=== PATIENT | female | born 1985 | race Caucasian/White ===

== ENCOUNTER 2020-07-12 08:57 | Emergency (ER) | payer SELFPAY ==
[2020-07-12 09:05] VITALS: BP 170/91; PULSE 98; RESP 18; TEMP 36.3; O2SAT 98; BMI 60.0
[2020-07-12 09:29] LABS: Basophils % 0.3 %; Eosinophils # 0.2 10^3/uL (0.0-0.8); Hemoglobin 11.5 g/dL (11.5-15.3); Lymphocytes # 2.2 10^3/uL (0.8-4.8); Lymphocytes % 23.7 %; Mean Corpuscular HGB Conc 31.1 g/dL (30.0-36.0); Mean Corpuscular Hemoglobin 27.1 pg (28.0-34.0); Mean Corpuscular Volume 87.1 fL (81-99); Mean Platelet Volume 10.3 fL (7.4-10.4); Monocytes # 0.6 10^3/uL (0.2-0.9); Monocytes % 6.3 %; Neutrophils # 6.24 10^3/uL (1.8-7.7); Neutrophils % 67.3 %; Nucleated Red Blood Cells % 0 %; Platelet Count 260 10^3/cmm (130-400); Red Blood Count 4.25 10^6/uL (4.1-5.3); Red Cell Distribution Width 14.7 % (12.1-15.1); White Blood Count 9.3 10^3/uL (4.0-10.0)
--- NOTE | 2020-07-12 09:37 | ED_ITS ---
HPI - General Adult General: Chief complaint: Vaginal Bleeding Stated complaint: PASSING BIG BLOOD CLOTS Time Seen by Provider: 07/12/20 08:58 History of Present Illness: HPI narrative: 34-year-old female who presents emergency room with complaint of vaginal bleeding. She is on IM medroxyprogesterone every 3 months she has been on that for 18 months states her next shot is due in about 3 to 4 weeks. For the last 2 weeks she has been having heavy.'s been a little bit lightheaded. Not had any syncopal episodes. She has had some mild cramping but no vaginal discharge burning or itching. She denies any dysuria urgency or frequency. She does have a history of polycystic ovarian syndrome. Onset (ago): week(s) (2) Location: pelvis Radiation: non-radiation Severity: moderate Quality: other (Mild cramping) Pain Consistency: intermittent Relieving factors: none Exacerbating factors: none Associated symptoms: Reports malaise; Deny chest pain, confusion, cough, diaphoresis, decreased appetite, dyspnea, fevers/chills, headache(s), nausea, rash, palpitations, seizures, short of breath, syncope, vomiting or weakness Treatments prior to arrival: none Review of Systems Const: Reports: malaise; Denies: diaphoresis ENMT: Denies: throat pain, ear or mastoid pain, nasal discharge or nasal congestion Card: Denies: chest pain, palpitations or syncope Resp: Denies: dyspnea GI: Denies: nausea or vomiting : Denies: flank pain, difficulty voiding, dysuria, urinary frequency or urinary urgency Skin/Breast: Denies: rash Neuro: Denies: headache(s) or confusion [facility] ED PFSH: Medical History (Updated 07/12/20 @ 10:40 by Kamari Up DO) PCOS (polycystic ovarian syndrome) Surgical History (Updated 07/12/20 @ 09:40 by Kamari Up DO) No history of previous surgery Social History (Updated 07/12/20 @ 09:40 by Kamari Up DO) Smoking and tobacco status: never smoked Alcohol intake: never Physical Exam Const: COMMON NORMALS: no acute distress GENERAL APPEARANCE: cooperative and comfortable ORIENTATION/CONSCIOUSNESS: Yes awake, Yes oriented to person, Yes oriented to place and Yes oriented to time HENMT: COMMON NORMALS: normocephalic, atraumatic and hearing grossly normal bilaterally HEAD & SCALP: normocephalic and atraumatic Neck/C-Spine: COMMON NORMALS: no JVD Resp: COMMON NORMALS: normal respiratory effort, No retractions, No use of accessory muscles and clear to auscultation bilaterally AUSCULTATION: clear to auscultation bilaterally Cardio: COMMON NORMALS: no JVD, regular rate, regular rhythm and No murmurs present (Cardio) RATE: regular rate RHYTHM: regular rhythm GI: COMMON NORMALS: Soft to palpation and No hepatosplenomegaly present AUSCULTATION: Yes normoactive bowel sounds PALPATION: Yes Soft to palpation, No Tenderness to palpation present (GI), No Guarding due to palpation present (GI) and Yes No hepatosplenomegaly present Extremity: COMMON NORMALS: normal to inspection, capillary refill normal, no clubbing, cyanosis or edema, no calf tenderness and no pedal edema Neuro: SENSORIUM/ORIENTATION: Yes oriented to person, Yes oriented to place and Yes oriented to time Skin: COMMON NORMALS: no rashes or lesions noted GENERAL SKIN EXAM: no rashes or lesions noted Course Vital Signs: Vital signs: Vital Signs Temperature 97.3 F L 07/12/20 09:05 Pulse Rate 65 07/12/20 10:42 Respiratory Rate 18 07/12/20 09:05 Blood Pressure 118/62 07/12/20 10:42 Pulse Oximetry 100 07/12/20 10:42 MDM - General Adult MDM Narrative: Medical decision making narrative: Medroxyprogesterone withdrawal bleed warned patient that when she finishes the medicine she will have a significant withdrawal bleed however follow-up with Dr. Phillips in the office return if she has further problems Lab Data: Labs: Lab Results 07/12/20 07/12/20 07/12/20 Range/Units 09:22 09:22 09:22 WBC 9.3 (4.0-10.0) 10^3/ uL RBC 4.25 (4.1-5.3) 10^6/u L Hgb 11.5 (11.5-15.3) g/dL Hct 37.0 (37.0-47.0) % MCV 87.1 (81-99) fL MCH 27.1 L (28.0-34.0) pg MCHC 31.1 (30.0-36.0) g/dL RDW 14.7 (12.1-15.1) % Plt Count 260 (130-400) 10^3/c mm MPV 10.3 (7.4-10.4) fL Neut % (Auto) 67.3 % Lymph % (Auto) 23.7 % [place] % (Auto) 6.3 % Eos % (Auto) 2.0 % Baso % (Auto) 0.3 % Neut # (Auto) 6.24 (1.8-7.7) 10^3/u L Lymph # (Auto) 2.2 (0.8-4.8) 10^3/u L [place] # (Auto) 0.6 (0.2-0.9) 10^3/u L Eos # (Auto) 0.2 (0.0-0.8) 10^3/u L Baso # (Auto) 0.0 (0.0-0.1) 10^3/u L Nucleated RBC % (a uto) 0 % Nucleated RBCs # 0.0 /100WBC PT 13.10 (12.1-14.9) SECO NDS INR 0.97 (0.8-1.2) APTT 25.2 (23.9-36.7) SECO NDS Sodium 140 (136-145) mmol/L Potassium 3.9 (3.5-5.1) mmol/L Chloride 107 (98-107) mmol/L Carbon Dioxide 24 (22-29) mmol/L Anion Gap 12.9 (5-19) BUN 13 (6-20) mg/dL Creatinine 0.7 (0.5-0.9) mg/dL GFR Calculation 96.4 (90-130) mL/min Glucose 104 (65-115) mg/dL Calculated Osmolal ity 286 (285-295) mOsm/k g Calcium 9.2 (8.5-10.5) mg/dL Total Bilirubin 0.5 (0.15-1.2) mg/dL AST 39 H (0-32) U/L ALT 35 H (0-33) U/L Alkaline Phosphata se 115 H (35-105) IU/L Total Protein 6.9 (6.6-8.7) g/dL Albumin 3.9 (3.5-5.2) g/dL Globulin 3.0 (1.3-4.6) g/dL HCG, Qual (Negative) Urine Color (Yellow) Urine Appearance (CLEAR) Urine pH (5-7) Ur Specific Gravit y (1.005-1.030) Urine Protein (Negative) Urine Glucose (UA) (Normal) Urine Ketones (Negative) Urine Blood (Negative) Urine Nitrate (Negative) Urine Bilirubin (NEGATIVE) Urine Urobilinogen (Negative) mg/dL Ur Leukocyte Ashley ase (Negative) Urine RBC (0-2) /hpf Urine WBC (0-5) /hpf Ur Squamous Epith Cells (0-5) Amorphous Sediment Urine Bacteria (NONE) 07/12/20 07/12/20 Range/Units 09:22 10:07 WBC (4.0-10.0) 10^3/ uL RBC (4.1-5.3) 10^6/u L Hgb (11.5-15.3) g/dL Hct (37.0-47.0) % MCV (81-99) fL MCH (28.0-34.0) pg MCHC (30.0-36.0) g/dL RDW (12.1-15.1) % Plt Count (130-400) 10^3/c mm MPV (7.4-10.4) fL Neut % (Auto) % Lymph % (Auto) % [place] % (Auto) % Eos % (Auto) % Baso % (Auto) % Neut # (Auto) (1.8-7.7) 10^3/u L Lymph # (Auto) (0.8-4.8) 10^3/u L [place] # (Auto) (0.2-0.9) 10^3/u L Eos # (Auto) (0.0-0.8) 10^3/u L Baso # (Auto) (0.0-0.1) 10^3/u L Nucleated RBC % (a uto) % Nucleated RBCs # /100WBC PT (12.1-14.9) SECO NDS INR (0.8-1.2) APTT (23.9-36.7) SECO NDS Sodium (136-145) mmol/L Potassium (3.5-5.1) mmol/L Chloride (98-107) mmol/L Carbon Dioxide (22-29) mmol/L Anion Gap (5-19) BUN (6-20) mg/dL Creatinine (0.5-0.9) mg/dL GFR Calculation (90-130) mL/min Glucose (65-115) mg/dL Calculated Osmolal ity (285-295) mOsm/k g Calcium (8.5-10.5) mg/dL Total Bilirubin (0.15-1.2) mg/dL AST (0-32) U/L ALT (0-33) U/L Alkaline Phosphata se (35-105) IU/L Total Protein (6.6-8.7) g/dL Albumin (3.5-5.2) g/dL Globulin (1.3-4.6) g/dL HCG, Qual Negative (Negative) Urine Color Red (Yellow) Urine Appearance Cloudy (CLEAR) Urine pH 5 (5-7) Ur Specific Gravit y 1.020 (1.005-1.030) Urine Protein 1+ H (Negative) Urine Glucose (UA) Norm (Normal) Urine Ketones Negative (Negative) Urine Blood 3+ H (Negative) Urine Nitrate Negative (Negative) Urine Bilirubin Neg (NEGATIVE) Urine Urobilinogen Neg (Negative) mg/dL Ur Leukocyte Ashley ase Trace H (Negative) Urine RBC Too numerous to c nt H (0-2) /hpf Urine WBC None (0-5) /hpf Ur Squamous Epith Cells 0-4 H (0-5) Amorphous Sediment Not Reportable Urine Bacteria 1+ H (NONE) Discharge Plan Discharge Patient Disposition: Home Clinical Impression: Menometrorrhagia, PCOS (polycystic ovarian syndrome) Condition: Stable Prescriptions: New medroxyprogesterone 10 mg tablet 10 mg PO DAILY 10 Days RF: 0 No Action medroxyprogesterone 150 mg/mL syringe 150 mg IM Q90D RF: 0 Discharge Orders: Discharge Order (Routine); Ordered 07/12/20 Ordered By: Kamari Up Discharge Diet: Usual diet Discharge Activity: Resume usual activity Activity Restrictions/Additional Instructions: Follow-up with Dr. Phillips within 1 week Discharge Date/Time: 07/12/20 10:42 Coding Level of Care Code ED Paper Conservator for Chg Fwd Exam Comprehensive
[2020-07-12 09:46] LABS: INR 0.97 (0.8-1.2)
[2020-07-12 09:47] LABS: Partial Thromboplastin Time 25.2 SECONDS (23.9-36.7)
[2020-07-12 09:51] LABS: HCG, Serum Qual Negative (Negative)
[2020-07-12 10:03] LABS: Alanine Aminotransferase 35 U/L (0-33); Albumin Level 3.9 g/dL (3.5-5.2); Alkaline Phosphatase 115 IU/L (35-105); Anion Gap 12.9 (5-19); Aspartate Amino Transferase 39 U/L (0-32); Blood Urea Nitrogen 13 mg/dL (6-20); Calcium 9.2 mg/dL (8.5-10.5); Carbon Dioxide 24 mmol/L (22-29); Chloride 107 mmol/L (98-107); Glomerular Filtration Rate 96.4 mL/min (90-130); Glucose 104 mg/dL (65-115); Osmolality Calculated 286 mOsm/kg (285-295); Potassium 3.9 mmol/L (3.5-5.1); Sodium 140 mmol/L (136-145); Total Bilirubin 0.5 mg/dL (0.15-1.2); Total Protein 6.9 g/dL (6.6-8.7)
[2020-07-12 10:15] LABS: Add Urine Microscopic? YES; Bilirubin Urine Neg (NEGATIVE); Blood Urine 3+ (Negative); Glucose Urine UA Norm (Normal); Ketones Urine Negative (Negative); Leukocyte Esterase Urine Trace (Negative); Nitrate Urine Negative (Negative); Protein Urine 1+ (Negative); Urine Appearance Cloudy (CLEAR); Urine Color Red (Yellow); Urobilinogen Urine Neg (Negative); pH Urine 5 (5-7)
[2020-07-12 10:25] LABS: Add Urine Culture? Yes; Bacteria Urine 1+; RBC Urine TOO NUMEROUS TO CNT /hpf (0-2); Squamous Epithelial Cell Urine 0-4 (0-5)
[2020-07-12 10:42] VITALS: BP 118/62; PULSE 65; O2SAT 100
== END 2020-07-12 10:42 | disposition home or self-care (01) ==
PROVIDERS: Emergency Provider Family Medicine
DX: N92.1 Excessive and frequent menstruation with irregular cycle (principal); E28.2 Polycystic ovarian syndrome
CPT/HCPCS: 12345; 36415; 80053; 81001; 84703; 85025; 85610; 85730; 87086; 99282

== ENCOUNTER 2021-08-28 06:18 | Emergency (ER) | payer MEDICAID, SELFPAY ==
[2021-08-28 06:27] VITALS: BP 181/119; PULSE 81; RESP 18; TEMP 36.7; O2SAT 100; BMI 60.0
--- NOTE | 2021-08-28 06:29 | ECG_ITS ---
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 Measurements Intervals [place] Rate: 58 P: 43 MD: 134 QRS: 18 QRSD: 80 T: 29 QT: 391 QTc: 385 Interpretive Statements SINUS BRADYCARDIA LOW QRS VOLTAGE IN PRECORDIAL LEADS [QRS DEFLECTION < 1.0 mV IN CHEST LEADS] Compared to ECG 05/10/2018 17:58:39 Low QRS voltage now present Sinus rhythm no longer present Myocardial infarct finding no longer present Electronically Signed On 08-28-2021 22:17:34 CDT by Prabha He M.D. [email or web address]
--- NOTE | 2021-08-28 06:30 | W.ED.GENADLT ---
HPI - General Adult General: Chief complaint: Dizziness Stated complaint: Dizziness Time Seen by Provider: 08/28/21 06:27 History of Present Illness: HPI narrative: 35-year-old female presents to the emergency room with complaints of dizziness. Symptoms began this morning's were worse when she stands up. Its been persisting she has not really noticed that change in head position exacerbates it or relieves it. Lying down does seem to relieve it she has had a little bit of a sinus congestion headache recently that seems to be improving some. She denies any fever sweats chills no teeth pain no drainage from the ears. No cough or shortness of breath Onset (ago): minute(s) Relieving factors: rest (Laying supine) Exacerbating factors: other (Standing) Associated symptoms: Deny chest pain, confusion, cough, diaphoresis, decreased appetite, dyspnea, fevers/chills, headache(s), malaise, nausea, rash, palpitations, seizures, short of breath, syncope, vomiting or weakness Treatments prior to arrival: none Review of Systems Const: Denies: malaise or diaphoresis ENMT: Denies: throat pain, ear or mastoid pain, nasal discharge or nasal congestion Card: Denies: chest pain, palpitations or syncope Resp: Denies: dyspnea GI: Denies: nausea or vomiting : Denies: flank pain, difficulty voiding, dysuria, urinary frequency or urinary urgency Skin/Breast: Denies: rash Neuro: Denies: headache(s) or confusion PFS ED PFSH: Medical History PCOS (polycystic ovarian syndrome) Surgical History No history of previous surgery Social History Smoking and tobacco status: never smoked Alcohol intake: never Physical Exam Const: COMMON NORMALS: no acute distress GENERAL APPEARANCE: cooperative and comfortable ORIENTATION/CONSCIOUSNESS: Yes awake, Yes oriented to person, Yes oriented to place and Yes oriented to time HENMT: COMMON NORMALS: normocephalic, atraumatic and hearing grossly normal bilaterally HEAD & SCALP: normocephalic and atraumatic Neck/C-Spine: COMMON NORMALS: no JVD Resp: COMMON NORMALS: normal respiratory effort, No retractions, No use of accessory muscles and clear to auscultation bilaterally AUSCULTATION: clear to auscultation bilaterally Cardio: COMMON NORMALS: no JVD, regular rate, regular rhythm and No murmurs present (Cardio) RATE: regular rate RHYTHM: regular rhythm GI: COMMON NORMALS: Soft to palpation and No hepatosplenomegaly present AUSCULTATION: Yes normoactive bowel sounds PALPATION: Yes Soft to palpation, No Tenderness to palpation present (GI), No Guarding due to palpation present (GI) and Yes No hepatosplenomegaly present Extremity: COMMON NORMALS: normal to inspection, capillary refill normal, no clubbing, cyanosis or edema, no calf tenderness and no pedal edema Neuro: SENSORIUM/ORIENTATION: Yes oriented to person, Yes oriented to place and Yes oriented to time Skin: COMMON NORMALS: no rashes or lesions noted GENERAL SKIN EXAM: no rashes or lesions noted Course Vital Signs: Vital signs: Vital Signs Temperature 98.1 F 08/28/21 06:27 Pulse Rate 81 08/28/21 06:27 Respiratory Rate 18 08/28/21 06:27 Blood Pressure 181/119 08/28/21 06:27 Pulse Oximetry 100 08/28/21 06:27 MDM - General Adult MDM Narrative: Medical decision making narrative: Improved with fluids and meclizine. Labs reviewed on the chart. We will go and discharge patient on meclizine as needed follow-up as needed Lab Data: Labs: Lab Results 08/28/21 08/28/21 07:15 07:15 WBC 9.2 10^3/uL 10^3/ uL (4.0-10.0) RBC 4.97 10^6/uL 10^6 /uL (4.1-5.3) Hgb 14.4 g/dL g/dL (11.5-15.3) Hct 46.7 % % (37.0-47.0) MCV 94.0 fl fl (81-99) MCH 29.0 pg pg (28.0-34.0) MCHC 30.8 g/dL g/dL (30.0-36.0) RDW 13.6 % % (12.1-15.1) Plt Count 275 10^3/cmm 10^3 /cmm (130-400) MPV 10.4 fL fL (7.4-10.4) Neut % (Auto) 62.1 % % Lymph % (Auto) 27.1 % % [place] % (Auto) 7.2 % % Eos % (Auto) 2.5 % % Baso % (Auto) 0.8 % % Neut # (Auto) 5.71 10^3/uL 10^3 /uL (1.8-7.7) Lymph # (Auto) 2.5 10^3/uL 10^3/ uL (0.8-4.8) [place] # (Auto) 0.7 10^3/uL 10^3/ uL (0.2-0.9) Eos # (Auto) 0.2 10^3/uL 10^3/ uL (0.0-0.8) Baso # (Auto) 0.1 10^3/uL 10^3/ uL (0.0-0.1) Nucleated RBC % (a uto) 0 % % Nucleated RBCs # 0.0 /100WBC /100W BC Sodium 141 mmol/L mmol/L (136-145) Potassium 4.0 mmol/L mmol/L (3.5-5.1) Chloride 109 mmol/L H mmol /L (98-107) Carbon Dioxide 22 mmol/L mmol/L (22-29) Anion Gap 14.0 (5-19) BUN 14 mg/dL mg/dL (6-20) Creatinine 0.6 mg/dL mg/dL (0.5-0.9) GFR Calculation 114.4 mL/min mL/m in (90-130) Glucose 87 mg/dL mg/dL (65-115) Calculated Osmolal ity 292 mOsm/kg mOsm/ kg (285-295) Calcium 9.3 mg/dL mg/dL (8.5-10.5) Total Bilirubin 0.3 mg/dL mg/dL (0.15-1.2) AST 31 U/L U/L (0-32) ALT 33 U/L U/L (0-33) Alkaline Phosphata se 102 IU/L IU/L (35-105) Total Protein 7.3 g/dL g/dL (6.6-8.7) Albumin 3.9 g/dL g/dL (3.5-5.2) Globulin 3.4 g/dL g/dL (1.3-4.6) Discharge Plan Discharge Patient Disposition: Home Clinical Impression: Acute labyrinthitis Condition: Stable Prescriptions: New meclizine 25 mg tablet,chewable 25 mg PO QID PRN (Reason: dizziness) Qty: 20 RF: 0 No Action medroxyprogesterone 150 mg/mL syringe 150 mg IM Q90D RF: 0 Discharge Orders: Discharge ED (Routine); Ordered 08/28/21 Ordered By: Kamari Up Discharge Diet: Usual diet Discharge Activity: Increase activity as tolerated Patient Instructions: Opioid Safety Stand Alone Forms: Work/School Release Coding Level of Care Code ED Agriculture Department Chair for Gallito Fwd Exam Comprehensive
[2021-08-28] MEDS: meclizine 25 mg tablet 50 MG PO (07:06)
[2021-08-28] MEDS: sodium chloride 0.9% 1,000 ML 999 ML IV (07:06)
[2021-08-28 07:26] LABS: Basophils # 0.1 10^3/uL (0.0-0.1); Basophils % 0.8 %; Eosinophils # 0.2 10^3/uL (0.0-0.8); Eosinophils % 2.5 %; Hematocrit 46.7 % (37.0-47.0); Hemoglobin 14.4 g/dL (11.5-15.3); Lymphocytes # 2.5 10^3/uL (0.8-4.8); Lymphocytes % 27.1 %; Mean Corpuscular HGB Conc 30.8 g/dL (30.0-36.0); Mean Platelet Volume 10.4 fL (7.4-10.4); Monocytes # 0.7 10^3/uL (0.2-0.9); Monocytes % 7.2 %; Neutrophils # 5.71 10^3/uL (1.8-7.7); Neutrophils % 62.1 %; Nucleated Red Blood Cells % 0 %; Platelet Count 275 10^3/cmm (130-400); Red Blood Count 4.97 10^6/uL (4.1-5.3); Red Cell Distribution Width 13.6 % (12.1-15.1); White Blood Count 9.2 10^3/uL (4.0-10.0)
[2021-08-28 07:51] LABS: Alanine Aminotransferase 33 U/L (0-33); Albumin Level 3.9 g/dL (3.5-5.2); Alkaline Phosphatase 102 IU/L (35-105); Aspartate Amino Transferase 31 U/L (0-32); Blood Urea Nitrogen 14 mg/dL (6-20); Calcium 9.3 mg/dL (8.5-10.5); Carbon Dioxide 22 mmol/L (22-29); Chloride 109 mmol/L (98-107); Globulin 3.4 g/dL (1.3-4.6); Glomerular Filtration Rate 114.4 mL/min (90-130); Glucose 87 mg/dL (65-115); Osmolality Calculated 292 mOsm/kg (285-295); Sodium 141 mmol/L (136-145); Total Bilirubin 0.3 mg/dL (0.15-1.2); Total Protein 7.3 g/dL (6.6-8.7)
== END 2021-08-28 08:28 | disposition home or self-care (01) ==
PROVIDERS: Emergency Provider Family Medicine
DX: H83.09 Labyrinthitis, unspecified ear (principal)
CPT/HCPCS: 36415; 80053; 85025; 93005; 96360; 99283; J7030; J8597

== ENCOUNTER → 2022-02-08 10:42 | Outpatient (BNVA) | payer OTHER, SELFPAY | PROVIDERS: Visit Provider Nurse Practitioner | DX: M25.512 Pain in left shoulder (principal); M25.522 Pain in left elbow | CPT/HCPCS: 73030; 73080 ==

== ENCOUNTER → 2022-12-27 15:00 | Outpatient (BNVA) | payer MEDICAID, SELFPAY | PROVIDERS: PCP Family Medicine; Visit Provider Nurse Practitioner Women's Health | DX: Z12.4 Encounter for screening for malignant neoplasm of cervix (principal); N93.9 Abnormal uterine and vaginal bleeding, unspecified; Z01.419 Encounter for gynecological examination (general) (routine) without abnormal findings; E28.2 Polycystic ovarian syndrome | CPT/HCPCS: 84443; 85025; 87624 ==

== ENCOUNTER → 2023-01-06 10:28 | Outpatient (BNVA) | payer MEDICAID, SELFPAY | PROVIDERS: PCP Family Medicine; Visit Provider Nurse Practitioner Women's Health | DX: N93.9 Abnormal uterine and vaginal bleeding, unspecified (principal) | CPT/HCPCS: 76830 ==

== ENCOUNTER → 2023-01-09 12:14 | Outpatient (BNVA) | payer MEDICAID, SELFPAY | PROVIDERS: PCP Family Medicine; Visit Provider Nurse Practitioner Women's Health | DX: N93.9 Abnormal uterine and vaginal bleeding, unspecified (principal); E28.2 Polycystic ovarian syndrome | CPT/HCPCS: 81000; 88305 ==

== ENCOUNTER → 2023-01-24 08:15 | Outpatient (BNVA) | payer MEDICAID, SELFPAY | PROVIDERS: PCP Family Medicine; Visit Provider Nurse Practitioner Women's Health | DX: L68.0 Hirsutism (principal); N93.9 Abnormal uterine and vaginal bleeding, unspecified; E28.2 Polycystic ovarian syndrome | CPT/HCPCS: 80048 ==

== ENCOUNTER 2023-03-22 09:04 | Emergency (ER) | payer MEDICAID, SELFPAY ==
[2023-03-22 09:09] VITALS: BP 162/86; PULSE 71; RESP 16; TEMP 36.8; O2SAT 100
[2023-03-22 09:13] VITALS: RESP 17; O2SAT 100
--- NOTE | 2023-03-22 10:04 | W.ED.SKABFB ---
HPI - Skin/Abscess/Foreign Bdy General: Chief complaint: Skin/Abscess/Foreign Body Stated complaint: poison unique body rash Time Seen by Provider: 03/22/23 09:08 Source: patient Mode of arrival: ambulatory History of Present Illness: 37-year-old female presents emergency room with multiple areas on her face chest and abdomen of mildly raised pruritic red rash. No urticarial wheal and flare. No vesicles she relates it to poison unique. She had previously been given a steroid shot and it is persisted she has not used any topicals oral steroids or antihistamines. No fever sweats chills no other symptoms. MD complaint: rash Onset (ago): day(s) Severity: mild Quality: pruritic Relieving factors: none Exacerbating factors: none Associated symptoms: Deny chills, fever(s), nausea or vomiting Treatments prior to arrival: corticosteroid Review of Systems Const: Denies: fever(s), chills, body aches, change in appetite, fatigue or malaise ENMT: Denies: throat pain, ear or mastoid pain, nasal discharge or nasal congestion Card: Denies: chest pain, edema, dyspnea on exertion or orthopnea Resp: Denies: dyspnea, productive cough or non-productive cough GI: Denies: abdominal pain, nausea, vomiting, hematemesis, coffee ground emesis, diarrhea, constipation, bloating, hematochezia or melena : Denies: flank pain, difficulty voiding, dysuria, urinary frequency or urinary urgency Skin/Breast: Denies: rash or pruritus PFSH ED PFSH: Medical History No pertinent past medical history neghx:htn,dm,thyroid,dvt/pe PCP: Dr. Alan Alvarado PCOS (polycystic ovarian syndrome) Diagnosed by labs with [facility] when she was a teenager. Surgical History History of cholecystectomy Family History Mother Diabetes Type 2 Daughter Diabetes Type 1 Father Hyperlipidemia elevated cholesterol Unknown Hypertension Grandmother Stroke Maternal Denies family history of Colon cancer Ovarian cancer Heart disease Breast cancer Uterine cancer Thyroid condition Physical Exam Const: COMMON NORMALS: no acute distress GENERAL APPEARANCE: cooperative and comfortable ORIENTATION/CONSCIOUSNESS: Yes awake, Yes oriented to person, Yes oriented to place and Yes oriented to time HENMT: COMMON NORMALS: normocephalic, atraumatic and hearing grossly normal bilaterally HEAD & SCALP: normocephalic and atraumatic Resp: COMMON NORMALS: normal respiratory effort, No retractions, No use of accessory muscles and clear to auscultation bilaterally AUSCULTATION: clear to auscultation bilaterally Cardio: COMMON NORMALS: regular rate, regular rhythm and No murmurs present (Cardio) RATE: regular rate RHYTHM: regular rhythm GI: COMMON NORMALS: Soft to palpation and No hepatosplenomegaly present AUSCULTATION: Yes normoactive bowel sounds PALPATION: Yes Soft to palpation, No Tenderness to palpation present (GI), No Guarding due to palpation present (GI) and Yes No hepatosplenomegaly present Extremity: COMMON NORMALS: normal to inspection, capillary refill normal, no clubbing, cyanosis or edema, no calf tenderness and no pedal edema Neuro: SENSORIUM/ORIENTATION: Yes oriented to person, Yes oriented to place and Yes oriented to time Skin: OTHER: Mild raised rash on the right lower cheek and the right forearm underside of the pannus right of the midline. No vesicular changes no purulent drainage or induration Course Vital Signs: Vital signs: Vital Signs Temperature 98.3 F 03/22/23 09:09 Pulse Rate 71 03/22/23 09:09 Respiratory Rate 17 03/22/23 10:25 Blood Pressure 162/86 03/22/23 09:09 Pulse Oximetry 100 03/22/23 10:25 Oxygen Delivery Me thod Room Air 03/22/23 09:13 MDM - Skin/Abscess/Foreign Bdy Medicial Decision Making Mild Darcy dermatitis. Topical triamcinolone prednisone taper follow-up as needed can use Benadryl as well for pruritic symptoms Discharge Plan Discharge Patient Disposition: Home Clinical Impression: Rhus dermatitis Condition: Stable Prescriptions: New Medrol (Jared) 4 mg tablets,dose pack See Rx Instructions .ROUTE .COMPLEX Qty: 21 0RF Rx Instructions: orally per package directions triamcinolone acetonide 0.1 % cream 1 applic topical BID Qty: 80 0RF No Action spironolactone 100 mg tablet 200 mg PO DAILY Qty: 60 10RF Mirena 21 mcg/24 hours (8 yrs) 52 mg intrauterine device 1 device intrauterine cyclobenzaprine 10 mg tablet 10 mg PO BID PRN (Reason: muscle spasm) Qty: 7 0RF citalopram 20 mg tablet 20 mg PO DAILY prenat.vits,sierra,[id number]-nnola Tablet 1 tab PO DAILY Discharge Orders: Discharge ED (Routine); Ordered 03/22/23 Ordered By: Kamari Up Referrals: Warren Phillips MD [Primary Care Provider] - Patient Instructions: Opioid Safety, Pain Management Activity Restrictions/Additional Instructions: You were seen today for a contact dermatitis from poison unique. Be sure to wash all items that may have come into contact with poison unique as the oils remaining on those items can reinitiate the rash. Use the steroid taper and the topical steroids as prescribed follow-up with primary care doctor in addition you may take [id number] Benadryl as needed Coding Level of Care Code ED Field Software Engineer for Gallito Morgan
[2023-03-22 10:25] VITALS: RESP 17; O2SAT 100
== END 2023-03-22 10:26 | disposition home or self-care (01) ==
PROVIDERS: Emergency Provider Family Medicine; PCP Family Medicine
DX: L23.7 Allergic contact dermatitis due to plants, except food (principal)
CPT/HCPCS: 99283

== ENCOUNTER 2023-05-12 19:33 | Emergency (ER) | payer MEDICAID, SELFPAY ==
--- NOTE | 2023-05-12 19:35 | XRR_ITS ---
PROCEDURE INFORMATION: Exam: XR Right Ankle Exam date and time: 05/12/2023 7:44 PM Age: 37 years old Clinical indication: Injury or trauma; Fall; Blunt trauma; Ankle; Right TECHNIQUE: Imaging protocol: Radiologic exam of the right ankle. Views: 3 or more views. COMPARISON: No relevant prior studies available. FINDINGS: Bones/joints: Normal. Soft tissues: Normal. XR/XR ankle RT min 3V* [id number] IMPRESSION: No acute findings.
[2023-05-12 19:37] VITALS: BP 131/84; PULSE 75; RESP 14; TEMP 36.8; O2SAT 100; BMI 54.9
--- NOTE | 2023-05-12 19:44 | ED_ITS ---
HPI - Extremity Problem General: Chief complaint: Extremity Injury, Lower Stated complaint: fall, right ankle injury Time Seen by Provider: 05/12/23 19:38 Source: patient Mode of arrival: ambulatory Limitations: no limitations History of Present Illness: 37-year-old female states that she had stepped in a hole just prior to arrival rolled her right ankle. States she has pain over the lateral portion of her right ankle. She states she has not been able to bear any weight on it denies any knee or hip pain she rates her pain a 6 out of 10. Associated symptoms: Deny chest pain, fever(s) or rash Review of Systems Const: Denies: fever(s) or chills Eyes: Denies: eye discomfort ENMT: Denies: throat pain or dental pain Card: Denies: chest pain Resp: Denies: dyspnea GI: Denies: abdominal pain, nausea or vomiting Musc: Reports: extremity pain; Denies: neck pain or back pain Skin/Breast: Denies: rash Neuro: Denies: headache(s) PFSH ED PFSH: Medical History No pertinent past medical history neghx:htn,dm,thyroid,dvt/pe PCP: Dr. Phillips Obesity PCOS (polycystic ovarian syndrome) Diagnosed by labs with [facility] when she was a teenager. Surgical History History of cholecystectomy Family History Mother Diabetes Type 2 Daughter Diabetes Type 1 Father Hyperlipidemia elevated cholesterol Unknown Hypertension Grandmother Stroke Maternal Denies family history of Colon cancer Ovarian cancer Heart disease Breast cancer Uterine cancer Thyroid condition Physical Exam Const: COMMON NORMALS: no acute distress and patient oriented x3 HENMT: COMMON NORMALS: normocephalic and atraumatic HEAD & SCALP: normocephalic and atraumatic Eye: COMMON NORMALS: conjunctivae normal CONJUNCTIVA: Yes conjunctivae normal Neck/C-Spine: COMMON NORMALS: full ROM Chest: COMMONS NORMALS: normal inspection of the chest and normal palpation of entire chest wall Resp: COMMON NORMALS: normal respiratory effort Cardio: COMMON NORMALS: regular rate RATE: regular rate Extremity: OTHER: No tenderness over the right knee she does have some swelling and tenderness over right lateral ankle no foot tenderness no tenderness along her Achilles tendon Neuro: COMMON NORMALS: patient oriented x3 Psych: COMMON NORMALS: mental status grossly normal Skin: COMMON NORMALS: no rashes or lesions noted GENERAL SKIN EXAM: no rashes or lesions noted Course Vital Signs: Vital signs: Vital Signs Temperature 98.2 F 05/12/23 19:37 Pulse Rate 75 05/12/23 19:37 Respiratory Rate 14 05/12/23 19:37 Blood Pressure 131/84 05/12/23 19:37 Pulse Oximetry 100 05/12/23 19:37 Oxygen Delivery Me thod Room Air 05/12/23 19:37 MDM - Extremity (Nontraumatic) Medical Decision Making Patient presents here with an ankle sprain x-ray shows no fracture here she is not able to bear weight we will place her in a splint have her use crutches to be nonweightbearing we will get her follow-up with podiatry she has no other injuries noted. Medical Records I reviewed the patient's medical records. Imaging Data xr r ankle: I personally reviewed and interpreted this imaging study as follows: My impression: no acute abnormality Discharge Plan Discharge Patient Disposition: Home Clinical Impression: Ankle sprain and strain Condition: Stable Prescriptions: New Naprosyn 500 mg tablet 500 mg PO BID PRN (Reason: pain) Qty: 20 0RF No Action spironolactone 100 mg tablet 200 mg PO DAILY Qty: 60 10RF Mirena 21 mcg/24 hours (8 yrs) 52 mg intrauterine device 1 device intrauterine cyclobenzaprine 10 mg tablet 10 mg PO BID PRN (Reason: muscle spasm) Qty: 7 0RF citalopram 20 mg tablet 20 mg PO DAILY prenat.vits,sierra,[id number] Tablet 1 tab PO DAILY Medrol (Jared) 4 mg tablets,dose pack See Rx Instructions .ROUTE .COMPLEX Qty: 21 0RF Rx Instructions: orally per package directions triamcinolone acetonide 0.1 % cream 1 applic topical BID Qty: 80 0RF Discharge Orders: Discharge ED (Routine); Ordered 05/12/23 Ordered By: Konstantin Calvin Referrals: Molina Garcia DPM [Physician] - 1-3 days Warren Phillips MD [Primary Care Provider] - Discharge Diet: Advance as tolerated Discharge Activity: Limit activity as instructed Patient Instructions: Ankle Sprain (ED) Coding Level of Care Code ED Loading Unit Operator Powder Charging for Gallito Morgan
[2023-05-12] MEDS: HYDROcodone-acetaminophen 5-325 mg Tablet 1 TAB PO (19:57)
[2023-05-12 20:16] VITALS: PULSE 85; O2SAT 95
--- NOTE | 2023-05-13 10:58 | PC.SOCIAL ---
Addendum entered by Meena Larose 05/23/23 14:57: Patient had a follow up appointment with ortho - patient did attend appointment. Original Note: Podiatry Referral Referral sent to podiatry at this time. Clinic to contact patient with appt date/time.
== END 2023-05-12 20:20 | disposition home or self-care (01) ==
PROVIDERS: Emergency Provider Emergency Medicine; PCP Family Medicine
DX: S93.401A Sprain of unspecified ligament of right ankle, initial encounter (principal); S96.911A Strain of unspecified muscle and tendon at ankle and foot level, right foot, initial encounter; X50.1XXA Overexertion from prolonged static or awkward postures, initial encounter
CPT/HCPCS: 29515; 73610; 99283; E0114

== ENCOUNTER 2023-05-15 11:01 | Outpatient (CLI) | payer MEDICAID, SELFPAY | END 2023-05-15 11:02 | disposition home or self-care (01) | LOC: SPT 05-19 11:02 | PROVIDERS: PCP Family Medicine; Visit Provider Podiatrist Foot & Ankle Surgery | DX: Z46.89 Encounter for fitting and adjustment of other specified devices (principal); S82.831D Other fracture of upper and lower end of right fibula, subsequent encounter for closed fracture with routine healing; X58.XXXD Exposure to other specified factors, subsequent encounter | CPT/HCPCS: 97760; L4361 ==

== ENCOUNTER → 2023-05-29 14:21 | Outpatient (BNVA) | payer MEDICAID, SELFPAY | PROVIDERS: PCP Family Medicine; Visit Provider Podiatrist Foot & Ankle Surgery | DX: S82.831A Other fracture of upper and lower end of right fibula, initial encounter for closed fracture (principal); W17.2XXA Fall into hole, initial encounter | CPT/HCPCS: 73610 ==

== ENCOUNTER 2023-05-29 15:59 | Outpatient (CLI) | payer MEDICAID, SELFPAY | END 2023-05-29 16:00 | disposition home or self-care (01) | LOC: SPT 15:59 | PROVIDERS: PCP Family Medicine; Visit Provider Podiatrist Foot & Ankle Surgery | DX: Z46.89 Encounter for fitting and adjustment of other specified devices (principal); S82.831D Other fracture of upper and lower end of right fibula, subsequent encounter for closed fracture with routine healing; X58.XXXD Exposure to other specified factors, subsequent encounter | CPT/HCPCS: 97760; L1902 ==

== ENCOUNTER → 2023-06-25 14:59 | Outpatient (BNVA) | payer MEDICAID, SELFPAY | PROVIDERS: PCP Family Medicine; Visit Provider Podiatrist Foot & Ankle Surgery | DX: S82.831A Other fracture of upper and lower end of right fibula, initial encounter for closed fracture (principal); W17.2XXA Fall into hole, initial encounter | CPT/HCPCS: 73610 ==

== ENCOUNTER → 2023-08-02 10:32 | Outpatient (BNVA) | payer MEDICAID, SELFPAY | PROVIDERS: PCP Family Medicine; Visit Provider Registered Nurse Neonatal Intensive Care | DX: J02.9 Acute pharyngitis, unspecified (principal); R05.9 Cough, unspecified; U07.1 COVID-19 | CPT/HCPCS: 87426; 87880 ==

== ENCOUNTER → 2025-02-14 11:48 | Outpatient (BNVA) | payer MEDICAID, SELFPAY | PROVIDERS: PCP Family Medicine; Visit Provider Registered Nurse Neonatal Intensive Care | DX: R35.0 Frequency of micturition (principal) | CPT/HCPCS: 81000 ==

== ENCOUNTER 2025-05-23 23:23 | Emergency (ER) | payer MEDICAID, SELFPAY ==
[2025-05-23 23:24] VITALS: BP 138/76; PULSE 76; RESP 16; TEMP 36.7; O2SAT 99; BMI 54.9
--- OUTSIDE RECORDS SUMMARY | 2025-05-23 23:28 | XMS_ITS | Clinical Summary ---
Author Organization [facility] Administrative Offices Address [address] [place] [address] Care Team Providers Care Radiophone Operator Name Role Phone Cathy León MD Primary Care Provider Allergies Active Allergy Reactions Criticality Noted Date Comments Azithromycin Itching,Rash Low 10/22/2023 Medications traZODone (DESYREL) 50 mg tablet Take 100 mg by mouth daily at bedtime. 3 Active levonorgestreL (MIRENA) 21 mcg/24 hours (8 yrs) 52 mg IUD 3 Active nystatin (NYSTOP) 100,000 unit/gram powderIndicati ons:Madelin infection Apply to affected area 2 times daily. 60 Gram 3 4 Active Additional Information Patient not taking.Reported on 02/21/2025 FLUoxetine (PROzac) 40 mg capsuleIndicat ions:Moderate episode of recurrent major depressive disorder (CMS/HCC) Take 1 Capsule (40 mg) by mouth daily. 90 Capsule 2 5 Active lurasidone (LATUDA) 20 mg Tablet tabletIndicati ons:Moderate episode of recurrent major depressive disorder (CMS/HCC) Take 1 Tablet (20 mg) by mouth daily with supper. 30 Tablet 2 5 Active cariprazine (VRAYLAR) 1.5 mg Capsule capsuleIndicat ions:Moderate episode of recurrent major depressive disorder (CMS/HCC) Take 1 capsule (1.5 mg) every other day for 1 week, then 1 capsule (1.5 mg) daily. 30 Capsule 2 025 Discontinu ed(Alterna te therapy prescribed ) Active Problems Problem Noted Date Diagnosed Date Viral gastroenteritis 01/06/2024 Acute diarrhea 01/06/2024 Encounters Date Type Department Care Team Description 04/26/2025 Orders Only [facility] [address] [place] [address] February, Moderate episode of recurrent major depressive disorder (CMS/HCC) (Primary Dx) 04/20/2025 Patient Outreach [facility] [address] [place] [address] Manoj Ponce APRN [facility] Psychiatric Recommendations; Patient Communication 04/19/2025 External Device Data STL ABSTRACTION Provider, Abstract 04/19/2025 Patient Outreach [facility] [address] [place] [address] [facility] Care 04/07/2025 Telephone [facility] [address] [place] [address] February, DRESS FITTER Medication Authorization 04/06/2025 External Device Data STL ABSTRACTION Provider, Abstract 04/05/2025 External Device Data STL ABSTRACTION Provider, Abstract 03/31/2025 Orders Only [facility] [address] [place] [address] February, DRESS FITTER Moderate episode of recurrent major depressive disorder (CMS/HCC) (Primary Dx) 03/30/2025 Telephone [facility] [address] [place] [address] February, DRESS FITTER New medication 03/30/2025 Patient Outreach [facility] [address] [place] [address] Manoj Ponce APRN [facility] Psychiatric Recommendations 03/22/2025 Patient Outreach [facility] [address] [place] [address] Care, [facility] 03/09/2025 Orders Only [facility] [address] [place] [address] February, DRESS FITTER Moderate episode of recurrent major depressive disorder (CMS/HCC) (Primary Dx) 02/23/2025 Results Follow-Up [facility] [address] [place] [address] February, DRESS FITTER POC URINALYSIS DIPSTICK AUTOMATED, LIPID PANEL, TSH, Additional followed-up results: 4 02/21/2025 9:00 AM CDT Office Visit [facility] [address] [place] [address] February, DRESS FITTER Encounter to establish care (Primary Dx); Urinary frequency; Moderate episode of recurrent major depressive disorder (CMS/HCC); Stress incontinence of urine; Leukocytes in urine; Declined influenza vaccine 02/21/2025 Patient Outreach [facility] [address] [place] [address] [facility], [facility] 02/21/2025 Patient Outreach [facility] [address] [place] [address] Meredith Reeder [facility] from Last 3 Months Immunizations Immunization Administration Dates Next Due INFLUENZA VACCINE QUADRIVALENT 6 MOS UP PF IM Family History Medical History Relation Name Comments Depression Father Cancer Mother Depression Mother Diabetes Mother Hypertension Mother Relation Name Status Comments Father Mother Social History Tobacco Use Types Packs/Day Years Used Date Smoking Tobacco: Never Passive Smoke Exposure: Never Smokeless Tobacco: Never Tobacco Cessation:Counseling Given: No Alcohol Use Standard Drinks/Week Comments Yes 0 (1 standard drink = 0.6 oz pur e alcohol) Feeling Safe Answer Date Recorded Are you in a relationship wi th someone who hurts you emotionally and/or physically? No 01/06/2024 Comments No Sex and Gender Information Value Date Recorded Sex Assigned at Female 05/29/2024 7:32 AM CDT Legal Sex Female 11:19 AM UPTWISTER TENDER Gender Identity Female 05/29/2024 7:32 AM CDT Sexual Orientation Bisexual 05/29/2024 7: 32 AM CDT Sexual Orientation Straight 05/29/2024 7: 32 AM CDT Last Filed Vital Signs Vital Sign Reading Time Taken Comments Blood Pressure 120/72 02/21/2025 8:37 AM CDT Pulse 84 02/21/2025 8:37 AM CDT Temperature 36.3 C (97.4 F) 02/21/2025 8:37 AM CDT Respiratory Rate 20 02/21/2025 8:37 AM CDT Oxygen Saturation 99% 02/21/2025 8:37 AM CDT Inhaled Oxygen Concentration - - Weight 151.5 kg (334 lb) 02/21/2025 8:37 AM CDT Height 160 cm (5' 3 ) 02/21/2025 8:37 AM CDT Body Mass Index 59.17 02/21/2025 8:37 AM CDT Plan of Treatment Upcoming Encounters Date Type Department Care Team (Late st Contact Info) Description 08/23/2025 9:20 AM CDT Office Visit [facility] [address] [place] [address] [facility], [facility] [address] [place] [facility] [place] [address] Health Maintenance Due Date Last Done Comments Pre-Diabetes and Diabetes Screening 1986 DTAP/TDAP/TD VACCINES (2 - Tdap) 06/10/2002 06/09/2002 Preventative Visit-Managed Medicaid 2005 HPV/Cotest (21-29) 2007 CERVICAL CANCER SCREENING 2016 HPV/Cotest (30-65) 2016 PAP SMEAR 2016 INFLUENZA VACCINE (#1) 2025 , 10/22/2023 HEPATITIS B VACCINES Completed 05/14/2000, 11/23/1999, 10/04/1999 HPV VACCINES Aged Out No longer eligi ble based on patient's age to complete this topic Procedures Procedure Name Priority Date/Time Associated Diagnosis Comments URINE CULTURE Routine 02/21/2025 9:45 AM CDT Leukocytes in urine POC URINALYSIS DIPSTICK AUTOMATED Routine 02/21/2025 9:17 AM CDT Urinary frequency QUEST TEST IN QUESTION (ACTION NEEDED) (NO MY CHART) Routine 02/21/2025 9:07 AM CDT CBC WITH DIFFERENTIAL Routine 02/21/2025 9:07 AM CDT Encounter to establish care COMPREHENSIVE METABOLIC PANEL Routine 02/21/2025 9:07 AM CDT Encounter to establish care TSH Routine 02/21/2025 9:07 AM CDT Encounter to establish care LIPID PANEL Routine 02/21/2025 9:07 AM CDT Encounter to establish care from Last 3 Months Results * URINE CULTURE (02/21/2025 9:45 AM CDT) URINE CULTURE SEE NOTE [facility] Comment: CULTURE, URINE, ROUTINE Micro Number: [id number] Test Status: Final Specimen Source: Urine, clean catch Specimen Quality: Adequate Result: Mixed genital shanta isolated. These superficial bacteria are not indicative of a urinary tract infection. No further organism identification is warranted on this specimen. If clinically indicated, recollect clean-catch, mid-stream urine and transfer immediately to Urine Culture Transport Tube. Test Performed at: [facility] [address] [place] [address] Liz Olson MD Urine URINE SPECIMEN OBTAINED BY CLEAN CATCH PROCEDURE / Unknown 02/21/2025 9:45 AM CDT 02/22/2025 2:21 AM CDT February DRESS FITTER MICROBIOLOGY - GENERAL ORDERABLE S Final Result [facility] [phone] [facility] [address] [address] [address] * (ABNORMAL) POC URINALYSIS DIPSTICK AUTOMATED (02/21/2025 9:17 AM CDT) COLOR UA POC Yellow Pale to Dark Yellow [facility] CLARITY UA POC Clear Clear, Other ME [facility] GLUCOSE UA POC Negative Negative, Normal [facility] BILIRUBIN UA POC Negative Negative [facility] KETONES UA POC Negative Negative [facility] SPECIFIC GRAVITY UA POC 1.025 1.000 - 1.030 [facility] BLOOD UA POC Trace(A) Negative [facility] PH UA POC 6.0 5.0 - 8.[address] [facility] PROTEIN UA POC Negative Negative [facility] UROBILINOGEN UA POC 0.2 <2.0 mg/dL [facility] NITRITE UA POC Negative Negative [facility] LEUKOCYTE ESTERASE UA POC 1+(A) Negative [facility] KIT [address] NUMBER POC [phone] [facility] KIT EXP DATE POC [id number] [facility] Urine 02/21/2025 9:17 AM CDT February DRESS FITTER POINT OF CARE TESTING Final Resu lt [facility] CLIA# [id number] [address] [place] [address] * QUEST TEST IN QUESTION (ACTION NEEDED) (NO MY CHART) (02/21/2025 9:07 AM CDT) REPORT/SPECIMEN COMMENT [facility] Comment: Whole blood, unspun or partially spun gel barrier tube was received more than 6 hours since collection. A false elevation of K, Phos and LD as well as a false decrease in glucose may occur due to prolonged contact with red cells. Test Performed at: [facility] [address] [facility] [place] [address] Liz Olson MD 02/21/2025 9:07 AM CDT 02/22/2025 3:22 AM CDT February [facility] CHEMISTRY ORDERABLES Final Resul t [facility] [phone] [facility] [place] [id number] [facility] [place] [address] * CBC WITH DIFFERENTIAL (02/21/2025 9:07 AM CDT) Pathologist [facility] WBC 8.5 3.8 - 10.8 Thousand/u L [facility] RBC 4.90 3.80 - 5.10 Million/uL [facility] HEMOGLOBIN 14.6 11.7 - 15.5 g/dL [facility] HEMATOCRIT 44.8 35.0 - 45.0 % [facility] MCV 91.4 80.0 - 100.0 fL [facility] MCH 29.8 27.0 - 33.0 pg [facility] MCHC 32.6 32.0 - 36.0 g/dL [facility] Comment: For adults, a slight decrease in the calculated MCHC value (in the range of 30 to 32 g/dL) is most likely not clinically significant; however, it should be interpreted with caution in correlation with other red cell parameters and the patient's clinical condition. RDW 12.9 11.0 - 15.0 % [facility] PLATELETS 316 140 - 400 Thousand/u L [facility] MPV 10.9 7.5 - 12.5 fL [facility] NEUTROPHIL ABSOLUTE 5,228 1,500 - 7,800 cells/uL [facility] LYMPHOCYTE ABSOLUTE 2,304 850 - 3,900 cells/uL [facility] MONOCYTE ABSOLUTE 680 200 - 950 cells/uL [facility] EOSINOPHIL ABSOLUTE 213 15 - 500 cells/uL [facility] BASOPHILS ABSOLUTE 77 0 - 200 cells/uL [facility] NEUTROPHIL 61.5 % [facility] LYMPHOCYTES 27.1 % [facility] MONOCYTE 8.0 % [facility] EOSINOPHILS 2.5 % [facility] BASOPHILS 0.9 % [facility] Comment: Test Performed at: [facility] [address] [place] [address] Liz Olson MD Blood 02/21/2025 9:07 AM CDT 02/22/2025 3:22 AM CDT February [facility] HEMATOLOGY ORDERABLES Final Resu lt Performing Organization Address [facility]/ZIP Co de Phone Number [facility] [phone] [facility] [address] [place] [address] * TSH (02/21/2025 9:07 AM CDT) TSH 2.22 mIU/L [facility] Comment: Reference Range > or = 20 Years 0.40-4.50 Ranges First trimester 0.26-2.66 Second trimester 0.55-2.73 Third trimester 0.43-2.91 Test Performed at: [facility] [address] Liz Olson MD Blood 02/21/2025 9:07 AM CDT 02/22/2025 3:22 AM CDT February [facility] CHEMISTRY ORDERABLES Final Resul t Performing Organization Address [facility]/ZIP Co de Phone Number [facility] [phone] [address] * (ABNORMAL) LIPID PANEL (02/21/2025 9:07 AM CDT) CHOLESTEROL 213(H) <200 mg/dL [facility] HDL 66 > OR = 50 mg/dL [facility] TRIGLYCERIDE 142 <150 mg/dL [facility] LDL CALCULATED 122(H) mg/dL (calc) [facility] Comment: Reference range: <100 Desirable range <100 mg/dL for primary prevention; <70 mg/dL for patients with CHD or diabetic patients with > or = 2 CHD risk factors. LDL-C is now calculated using the Ken calculation, which is a validated novel method providing better accuracy than the Friedewald equation in the estimation of LDL-C. Alan SS et al. KENDRA. 2013;310(19): 5110-3126 (http://education.[employer]/faq/FNL052) CHOL/HDL RATIO 3.2 <5.0 (calc) [facility] NON-HDL CHOLESTEROL 147(H) <130 mg/dL (calc) [facility] Comment: For patients with diabetes plus 1 major ASCVD risk factor, treating to a non-HDL-C goal of <100 mg/dL (LDL-C of <70 mg/dL) is considered a therapeutic option. Test Performed at: [facility] [address] [place] [address] Liz Olson MD Blood 02/21/2025 9:07 AM CDT 02/22/2025 3:22 AM CDT February DRESS FITTER CHEMISTRY ORDERABLES Final Resul t [facility] [phone] [facility] [address] [place] [address] * (ABNORMAL) COMPREHENSIVE METABOLIC PANEL (02/21/2025 9:07 AM CDT) Pathologist [facility] GLUCOSE 94 65 - 99 mg/dL [facility] Comment: Fasting reference interval BUN 19 7 - 25 mg/dL [facility] CREATININE 0.74 0.50 - 0.97 mg/dL [facility] GFR 106 > OR = 60 mL/min/1. 73m2 [facility] BUN/CREAT RATIO SEE NOTE: 6 - 22 (calc) [facility] Comment: Not Reported: BUN and Creatinine are within reference range. SODIUM 140 135 - 146 mmol/L [facility] POTASSIUM 4.0 3.5 - 5.3 mmol/L [facility] CHLORIDE 103 98 - 110 mmol/L [facility] CO2 28 20 - 32 mmol/L [facility] CALCIUM 9.0 8.6 - 10.2 mg/dL [facility] TOTAL PROTEIN 7.0 6.1 - 8.1 g/dL [facility] ALBUMIN 4.1 3.6 - 5.1 g/dL [facility] GLOBULIN 2.9 1.9 - 3.7 g/dL (calc) [facility] ALBUMIN/GLOBULIN RATIO 1.4 1.0 - 2.5 (calc) [facility] BILIRUBIN TOTAL 0.4 0.2 - 1.2 mg/dL [facility] ALKALINE PHOSPHATASE 122 31 - 125 U/L [facility] AST 25 10 - 30 U/L [facility] ALT 38(H) 6 - 29 U/L [facility] Comment: Test Performed at: [facility] [address] [address] [address] Liz Olson MD Blood 02/21/2025 9:07 AM CDT 02/22/2025 3:22 AM CDT February DRESS FITTER CHEMISTRY ORDERABLES Final Resul t [facility] [phone] [facility] [address] [place] [phone] from Last 3 Months Insurance [facility] [facility] MEDICAID Care Teams Radiophone Operator Relationship Specialty Start Date End Date Cathy León MD [address] [address] PCP - General Family Practice 10/22/23
--- OUTSIDE RECORDS SUMMARY | 2025-05-23 23:28 | XMS_ITS | Patient Health Record ---
Author Organization [facility] Address [address] [place], [place] [id number] Care Team Providers Care Bioinformatics Research Technician Name Role Phone Warren Phillips MD Primary Care Provider Gavino Martinez MD, [place] Unavailable [phone] Allergies Allergen (clinical drug ingredient) Drug/Non Drug Allergy documented on EMR Reaction Allergy Type Onset Date Status acetaminophen / hydrocodone hydrocodone/APAP (uncoded) Unknown Allergy Active azithromycin Zithromax Unknown Drug Allergy Acti ve codeine codeine Unknown Drug Allergy Active Reason For Referral No Information Medications Medication SIG (Take, Route, Fr equency, Duration) Notes Start Date End Date Status ibuprofen 400 mg 1 tab po orally BID prn pain; take with food for 30 day(s) Act bradford HYDROmorphone 2 mg 1 tab po orally Q4H prn pain for 30 day(s) Active gabapentin 300 mg 1 cap orally BID, ma y increase to TID Active Tylenol 500 1-2 tabs orally as directed/needed Active cetirizine 10 mg 1 tab orally once a day Active Problems Problem Type SNOMED Code ICD Code Onset Dates Problem Status W/U Status Risk Notes Problem Enthesopathy (43755081) Tendonitis, tendinitis (726.90) Active confirmed Problem Hypersomnia (19288957) Hypersomnia (780.54) Active confirmed Problem Shoulder pain (77750317) Shoulder pain (719.41) Active confirmed Problem Displacement of lumbar intervertebral disc without myelopathy (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) Lumbar (w/out myelopathy) intervertebral disc disorder (722.10) Active confirmed Problem Lumbosacral spondylosis without myelopathy (58470368) Lumbosacral spondylosis without myelopathy (721.3) Active confirmed Problem Long-term drug therapy (620763801) LONG-TERM USE MEDS NEC (V58.69) Active confirmed R/O substance abuse Problem Anxiety state (086521354) Anxiety State, other, specified: procedure related (300.09) Active confirmed Problem Solitary sacroiliitis (174855832) Sacroiliitis (720.2) Active confirmed Plan Of Treatment No Information Insurance Providers Payer Name Payer Address Payer Phone Subscriber Number Group Number Insured Name Patient Relationship to Insured Coverage Start Date Coverage End Date [place] [employer] [address] [place] [address] [phone] [id number] Dottie Haney Self - patient is the insured Medical (General) History Medical History History ICD Code Dysplasia of cervix Gastroesophageal reflux disease Obesity Dysthymic disorder Back pain Radiculopathy Surgical History Surgery Date(Month/Year) Cholecystectomy 2009 Tonsillectomy Hospitalization History Reason Date(Month/Year)
--- NOTE | 2025-05-24 02:05 | ED_ITS ---
HPI - Ear Problem General: Chief complaint: Ear Stated complaint: Swollen R Eye lid and R ear pain Time Seen by Provider: 05/24/25 01:27 History of Present Illness: Patient presents with a complaint of 'something in my ear' that started this afternoon. Patient denies fever. No history of similar episodes in the past. Patient reports recent swimming activity [place] a [place]. Patient also mentions eye concerns, stating there is 'something white underneath' and that eye drops cause burning sensation. A family member accompanying the patient expressed concern about the patient's ability to drive safely to and from work ([address]) with these symptoms. Related Data Home Medications ?Medication ?Instructions ?Recorded ?Confirmed levonorgestrel (Mirena) 1 device intrauterine 02/14/25 Previous Rx's ?Medication ?Instructions ?Recorded nitrofurantoin 100 mg PO BID 5 days #10 cap s 02/14/25 monohydrate/macrocrystals 100 mg capsule (Macrobid) ciprofloxacin 0.2 %-hydrocortisone 3 drp otic (ear) BI D 7 days #10 mL 05/24/25 1 % ear drops,suspension (Cipro HC) Allergies Allergy/AdvReac Type Severity Reaction Status Date / Time azithromycin (From Zithromax Allergy ALGY-Rash Verified 05/23/25 23:29 Z-Jared) spironolactone AdvReac Intermediate Dizziness Verified 05/23/25 23:29 & nausea Review of Systems General: Reports: 10 or more systems reviewed and unremarkable except in HPI and below PFSH ED PFSH: Medical History (Updated 05/24/25 @ 02:08 by Kang Flor DO) Obesity No pertinent past medical history neghx:htn,dm,thyroid,dvt/pe PCP: Dr. Phillips PCOS (polycystic ovarian syndrome) Diagnosed by labs with [facility] when she was a teenager. Surgical History History of cholecystectomy Family History Mother Diabetes Type 2 Daughter Diabetes Type 1 Father Hyperlipidemia elevated cholesterol Unknown Hypertension Grandmother Stroke Maternal Denies family history of Colon cancer Ovarian cancer Heart disease Breast cancer Uterine cancer Thyroid disease Social History Smoking and tobacco/nicotine status: never used tobacco/nicotine Female Reproductive History: Date of last menstrual period: 05/17/25 Physical Exam Const: COMMON NORMALS: no acute distress and alert HENMT: EXTERNAL AUDITORY CANAL: Abnormal EAC present (erythema and swelling, no exudate) EAC laterality: right Resp: COMMON NORMALS: normal respiratory effort and clear to auscultation bilaterally AUSCULTATION: clear to auscultation bilaterally Cardio: COMMON NORMALS: regular rate and regular rhythm RATE: regular rate RHYTHM: regular rhythm Neuro: SENSORIUM/ORIENTATION: Yes alert Skin: COMMON NORMALS: no rashes or lesions noted GENERAL SKIN EXAM: no rashes or lesions noted Course Vital Signs: Vital signs: Vital Signs Temperature 98.0 F 05/23/25 23:24 Pulse Rate 76 05/23/25 23:24 Respiratory Rate 16 05/23/25 23:24 Blood Pressure 138/76 05/23/25 23:24 Pulse Oximetry 99 05/23/25 23:24 Oxygen Delivery Me thod Room Air 05/23/25 23:24 MDM - Ear Medical Decision Making 39-year-old female in with right ear pain after swimming in [place] yesterday ear canal is erythematous and swollen consistent with an otitis externa. Will treat as such. No other significant concerns. All radiology interpretation(s) finalized by discharge Discharge Plan Discharge Patient Disposition: Home Clinical Impression: Otitis externa of right ear Condition: Stable Prescriptions: New Cipro HC 0.2-1 % drops,suspension 3 drp otic (ear) BID 7 Days Qty: 10 0RF No Action Mirena 21 mcg/24 hours (8 yrs) 52 mg intrauterine device 1 device intrauterine nitrofurantoin monohyd/m-cryst [Macrobid] 100 mg capsule 100 mg PO BID 5 Days Qty: 10 0RF Rx Instructions: must administer with a meal/food Discharge Orders: Discharge ED (Routine); Ordered 05/24/25 Ordered By: Kang Flor Referrals: Warren Phillips MD [Primary Care Provider, [facility]] Discharge Diet: Advance as tolerated Discharge Activity: Resume usual activity Patient Instructions: Opioid Safety, Pain Management, Patient Portal & Collins Instructions Activity Restrictions/Additional Instructions: 1. Off work tomorrow 2. Take drops to right ear as directed. 3. Follow up with PCP later in week if not improving. 4. Return here for new or worsening symptoms. Print Language: Mozambican Coding Level of Care Code ED Interior Wirer for Gallito Morgan
[2025-05-24 04:32] VITALS: BP 124/70; PULSE 82; RESP 17; O2SAT 98
== END 2025-05-24 02:19 | disposition home or self-care (01) ==
PROVIDERS: Emergency Provider Family Medicine; PCP Family Medicine
DX: H60.91 Unspecified otitis externa, right ear (principal)
CPT/HCPCS: 99283